=== PATIENT | male | born 1955 | race Caucasian/White ===

== ENCOUNTER → 2018-04-17 | Outpatient (CLI) | payer OTHER ==
[~2018-04-17] MED LIST: ALBU8.5H IH; ALF10 PO; BUPR-122 PO; BUPR-136 PO; BUPR-156 PO; CEP500 PO; CIP500 PO; CLO5 PO; CLON-303 *; DEXL60CA6 PO; DOC100 PO; ESOM20CA31 IV; ESOM40CA42 PO; EZET1TAB64 PO; FLU45SYR25 IM ONLY; HYDR-2946 PO; LAMO200T46 PO; LAMO25TA64 PO; LAMOT150PT PO; LISI-362 PO; METF-1 PO; METH4TAB66 PO; MULT-1335 PO; NAPR500T31 PO; OMEP-125 PO; OMEP40CA48 PO; OXYC20TA86 PO; PER PO; PHENA200 PO; SILD100T59 PO; SIMV-49 PO; VITORIN
--- NOTE | 2018-04-17 10:57 | RADIOLOGY IMAGING REPORT ---
[place] [facility] [place] NAME: River Carbajal : 1955 MR: [id number] V: [id number] EXAM DATE: ORDERING PHYSICIAN: KRISTIN PACHECO TECHNOLOGIST: Location: [facility] [place] Patient: River Carbajal : 1955 Visit/Account:[id number] Date of Sevice: 04/17/2018 CHEST PA AND LAT COMPARISONS: 2 view chest dated June 17, 2015 ADDITIONAL PERTINENT HISTORY: Pleuritic chest pain FINDINGS: Cardiomediastinal silhouette: Negative. Pulmonary vasculature: Negative. Lung prince: Negative. Pleural spaces: Negative. Osseous structures: Suture anchors involving the right humeral head. Otherwise negative Surrounding soft tissues: Negative. IMPRESSION: No evidence of acute cardiopulmonary disease. Report Dictated By: Toan Bautista MD at 04/17/2018 10:53 AM Report E-Signed By: Toan Bautista MD at 04/17/2018 10:54 AM WSN:[email or web address]
== END ==
LOC: RAD 10:00
PROVIDERS: ATTEND Internal Medicine
DX: R07.81 Pleurodynia (principal)
CPT/HCPCS: 71046

== ENCOUNTER → 2019-01-27 | Outpatient (CLI) | payer MEDICARE, OTHER ==
[~2019-01-27] MED LIST changes: -OMEP-125 PO; +OMEP-126 PO; +PNEU0.5D3 IM; +PRED20TA6 PO
--- NOTE | 2019-01-27 13:00 | RADIOLOGY IMAGING REPORT ---
FACILITY: [facility] PATIENT NAME: River Carbajal : 1955 MR: [id number] V: [id number] EXAM DATE: ORDERING PHYSICIAN: CHRISTIE ALEXANDER TECHNOLOGIST: Location: [facility] [place] Patient: River Carbajal : 1955 Visit/Account:[id number] Date of Sevice: 01/27/2019 CALCANEUS (HEEL) RIGHT Indication: Pain in right heel. Comparison: None. Findings: Calcaneus demonstrates normal mineralization. Subtalar joint space is smooth. There is no evidence of fracture. IMPRESSION: Normal right calcaneus radiograph. Report Dictated By: Roberto Carlos Coley at 01/27/2019 12:54 PM Report E-Signed By: Roberto Carlos Coley at 01/27/2019 12:55 PM WSN:[email or web address]
--- NOTE | 2019-01-27 13:01 | RADIOLOGY IMAGING REPORT ---
FACILITY: [facility] [place] PATIENT NAME: River Carbajal : 1955 MR: [id number] V: [id number] EXAM DATE: ORDERING PHYSICIAN: CHRISTIE ALEXANDER TECHNOLOGIST: Location: Patient: River Carbajal : 1955 Visit/Account:[id number] Date of Sevice: 01/27/2019 FINGER LEFT THUMB Indication: Pain in left thumb. Comparison: None. Findings: Distal and proximal phalanx demonstrate normal mineralization. The first metacarpal is nor mal. Joint spaces are smooth. There is no soft tissue swelling or fracture. IMPRESSION: Normal left thumb radiograph. Report Dictated By: Roberto Carlos Coley at 01/27/2019 12:55 PM Report E-Signed By: Roberto Carlos Coley at 01/27/2019 12:56 PM WSN:[email or web address]
== END ==
LOC: RAD 11:39
PROVIDERS: ATTEND Internal Medicine
DX: M79.671 Pain in right foot (principal); M19.90 Unspecified osteoarthritis, unspecified site